=== PATIENT | male | born 1990 | race Two or more races ===

== ENCOUNTER 2024-04-11 08:59 | Inpatient (IN) | payer OTHER ==
[2024-04-11] VITALS (10 sets, daily range): BP systolic 105–137; BP diastolic 52–92; PULSE 75–100; RESP 13–20; TEMP 98–99.1; O2SAT 93–98
[~2024-04-11] VITALS: Ht 170.2 cm; Wt 82.0 kg
[2024-04-11 09:44] LABS: Urine Bacteria None Seen /hpf (None Seen)
[2024-04-11] MEDS: PANTOPRAZOLE 40 MG/10 ML VIAL INJ IV ONE (09:44)
[2024-04-11] MEDS: SODIUM CHLORIDE 0.9% 1,000 ML IV ONE (09:44)
[2024-04-11] MEDS: PROCHLORPERAZINE EDISYLATE 5 MG/ML 2ML VIAL IV ONE (09:44)
[2024-04-11] MEDS: MORPHINE SULFATE 4 MG/ML SYR/VIAL IV ONE (09:45)
[2024-04-11 09:53] LABS: Urine Blood TRACE /uL (Negative); Urine Clarity Clear (Clear); Urine Color Light-Yellow (Yellow); Urine Hyaline Cast MOD /lpf (0 - 2); Urine Protein, UAD 2+ (Negative); Urine Specific Gravity 1.021 (1.001-1.035); Urine Urobilinogen 2 mg/dL (Negative); Urine WBC 4 /hpf (0 - 3); Urine pH 5.5 (5.0-9.0)
[2024-04-11 10:00] LABS: Basophils # (auto) 0 10 ^3/uL (0-0.2); Basophils % (auto) 0.3 % (0.0-2.0); Eosinophils # (auto) 0 10 ^3/uL (0-0.8); Hemoglobin 15.2 g/dL (13.5-17.5); Lymphocytes # (auto) 0.9 10 ^3/uL (0.4-5.4); Mean Corpuscular Hgb Conc. 35.4 g/dL (32.0-36.0); Mean Corpuscular Volume 93.2 fL (80.0-100.0); Monocytes # (auto) 0.8 10 ^3/uL (0-1.3); Monocytes % (auto) 6.2 % (0.0-12.0); Neutrophils # (auto) 10.9 10 ^3/uL (1.6-8.6); Neutrophils % (auto) 86.5 % (37.0-80.0); Red Blood Cells 4.61 10^6/uL (4.5-5.90); Red Cell Distribution Width 13.4 % (11.8-14.3); White Blood Cell 12.5 10^3/uL (4.4-10.8)
[2024-04-11 10:02] LABS: Amphetamine Screen, Urine Neg (NEGATIVE); Barbiturate Scree,Urine Neg (NEGATIVE); Benzodiazephine Screen, Urine Neg (NEGATIVE); Cannabinoid Screen, Urine Neg (NEGATIVE); Cocaine Screen, Urine Neg (NEGATIVE); Opiate Scree,Urine Neg (NEGATIVE); Phencyclidine Screen, Urine Neg (NEGATIVE)
[2024-04-11 10:03] LABS: Chloride 83 mmol/L (98-107); Potassium 2.9 mmol/L (3.5-5.1); Sodium 130 mmol/L (136-145)
[2024-04-11 10:04] LABS: Anion Gap 29 (5-15); Calcium 10.9 mg/dL (8.5-10.1); Carbon Dioxide 18 mmol/L (20-30)
[2024-04-11 10:09] LABS: Blood Urea Nitrogen 14 mg/dL (9-23); Glucose 112 mg/dL (74-106)
[2024-04-11 10:10] LABS: Blood Alcohol < 3.0 mg/dL (<10)
[2024-04-11] MEDS ORDERED: DEXTROSE (50%) 50ML SYRG IV PRN ×2 (10:30→10:45)
[2024-04-11] MEDS ORDERED: ACETAMINOPHEN 325 MG TAB PO PRN (10:45)
[2024-04-11] MEDS ORDERED: DOCUSATE SOD 100 MG CAP PO PRN (10:45)
[2024-04-11] MEDS ORDERED: MORPHINE SULFATE INJ 2 MG/ml SYRG IV PRN ×2 (10:45)
[2024-04-11] MEDS ORDERED: HYDROcodone-ACET 5/325MG TAB PO PRN (10:45)
[2024-04-11] MEDS ORDERED: TEMAZEPAM 15 MG CAP PO PRN (10:45)
[2024-04-11] MEDS ORDERED: NITROGLYCERIN 0.4 MG SL TAB SL PRN (10:45)
[2024-04-11] MEDS: INSULIN LANTUS (GLARGINE) 1 /0.01ml (100units/ml) SC ONE (11:00)
[2024-04-11 11:29] LABS: Magnesium 1.7 mg/dL (1.6-2.6)
[2024-04-11] MEDS: ENOXAPARIN SOD 40 MG/0.4 ML SYRINGE SC SCH (11:30)
[2024-04-11 11:31] LABS: Phosphorus 1.9 mg/dL (2.4-5.1)
[2024-04-11] MEDS: D5W/SOD CHLO 0.9% 1,000 ML IV SCH (11:31)
[2024-04-11] MEDS: POTASSIUM CHL 20MEQ/100ML 100 ML IV ONE (11:31)
[2024-04-11 11:55] LABS: Base Excess -3.6 mmol/L (-2.0-2.0)
[2024-04-11] MEDS ORDERED: ACCU-CHEK COMFORT CURVE STRIP VI SCH (12:00)
[2024-04-11 14:36] LABS: Chloride 91 mmol/L (98-107); Potassium 3.1 mmol/L (3.5-5.1); Sodium 132 mmol/L (136-145)
[2024-04-11 14:37] LABS: Anion Gap 18 (5-15); Carbon Dioxide 23 mmol/L (20-30)
[2024-04-11 14:38] LABS: Calcium 9.2 mg/dL (8.7-10.4)
[2024-04-11 14:42] LABS: BUN/Creatinine Ratio 12.2 (10.0-20.0); Blood Urea Nitrogen 11 mg/dL (9-23); Glucose 139 mg/dL (74-106)
[2024-04-11] MEDS: POTASSIUM CHL 20MEQ/100ML 100 ML IV SCH (15:17)
[2024-04-11] MEDS: ONDANSETRON HCL 4 MG/2 ML VIAL IV PRN (15:17)
[2024-04-11] MEDS: ACCU-CHEK COMFORT CURVE STRIP VI SCH (15:23)
[2024-04-11] MEDS ORDERED: POTASSIUM PHOSPHATE 26.4 MEQ in SODIUM CHL 0.9% 100 ML IV ONE (15:30)
[2024-04-11] MEDS: INSULIN DRIP 100 UNIT/100ML 100 ML IV SCH (15:52)
[2024-04-11] MEDS ORDERED: CITA-77 PO (16:03)
[2024-04-11] MEDS ORDERED: LAMO200T34 PO (16:03)
[2024-04-11] MEDS ORDERED: HYDR-3682 PO (16:03)
[2024-04-11 20:08] LABS: Chloride 97 mmol/L (98-107); Potassium 3.2 mmol/L (3.5-5.1); Sodium 133 mmol/L (136-145)
[2024-04-11 20:09] LABS: Anion Gap 12 (5-15); Carbon Dioxide 24 mmol/L (20-30)
[2024-04-11 20:10] LABS: Calcium 9.1 mg/dL (8.5-10.1)
[2024-04-11 20:14] LABS: BUN/Creatinine Ratio 12.5 (10.0-20.0); Blood Urea Nitrogen 10 mg/dL (9-23); Glucose 101 mg/dL (74-106)
[2024-04-11] MEDS: POTASSIUM PHOSPHATE 26.4 MEQ in SODIUM CHL 0.9% 100 ML IV ONE (20:29)
[2024-04-11] MEDS: hydrOXYzine 25 MG TAB or CAP PO SCH (21:49)
[2024-04-12] VITALS (42 sets, daily range): BP systolic 107–137; BP diastolic 73–96; PULSE 62–110; RESP 9–22; TEMP 98.2–99.3; O2SAT 92–99
[2024-04-12 02:01] LABS: Chloride 101 mmol/L (98-107); Potassium 2.9 mmol/L (3.5-5.1); Sodium 137 mmol/L (136-145)
[2024-04-12 02:02] LABS: Anion Gap 9 (5-15); Calcium 9.2 mg/dL (8.7-10.4); Carbon Dioxide 27 mmol/L (20-30)
[2024-04-12 02:07] LABS: BUN/Creatinine Ratio 9.6 (10.0-20.0); Blood Urea Nitrogen 7 mg/dL (9-23); Glucose 110 mg/dL (74-106)
[2024-04-12 05:14] LABS: Basophils # (auto) 0 10 ^3/uL (0-0.2); Basophils % (auto) 0.2 % (0.0-2.0); Eosinophils # (auto) 0.1 10 ^3/uL (0-0.8); Eosinophils % (auto) 1.4 % (0.0-7.0); Hematocrit 37.3 % (41.0-53.0); Hemoglobin 12.8 g/dL (13.5-17.5); Lymphocytes # (auto) 1.4 10 ^3/uL (0.4-5.4); Lymphocytes % (auto) 26.6 % (10.0-50.0); Mean Corpuscular Hemoglobin 32.6 pg (28.0-32.0); Mean Corpuscular Hgb Conc. 34.2 g/dL (32.0-36.0); Mean Corpuscular Volume 95.2 fL (80.0-100.0); Monocytes # (auto) 0.5 10 ^3/uL (0-1.3); Monocytes % (auto) 9.6 % (0.0-12.0); Neutrophils # (auto) 3.4 10 ^3/uL (1.6-8.6); Neutrophils % (auto) 62.2 % (37.0-80.0); Red Blood Cells 3.91 10^6/uL (4.5-5.90); Red Cell Distribution Width 13.6 % (11.8-14.3); White Blood Cell 5.4 10^3/uL (4.4-10.8)
[2024-04-12 05:29] LABS: Alanine Aminotransferase 64 U/L (7-40); Albumin 3.7 g/dL (3.2-4.8); Alkaline Phosphatase 50 U/L (46-116); Anion Gap 9 (5-15); Aspartate Aminotransferase 73 U/L (13-40); BUN/Creatinine Ratio 10.6 (10.0-20.0); Blood Urea Nitrogen 7 mg/dL (9-23); Calcium 9.1 mg/dL (8.7-10.4); Carbon Dioxide 29 mmol/L (20-30); Chloride 101 mmol/L (98-107); Glucose 108 mg/dL (74-106); Potassium 2.8 mmol/L (3.5-5.1); Sodium 139 mmol/L (136-145)
[2024-04-12 05:30] LABS: Bilirubin, Total 0.6 mg/dL (0.2-1.0); Total Protein 6.2 g/dL (5.7-8.2)
[2024-04-12] MEDS: SODIUM CHLORIDE 0.9% 1,000 ML IV SCH (08:17)
[2024-04-12] MEDS: POTASSIUM CHL 20MEQ/100ML 100 ML IV SCH (08:17)
[2024-04-12] MEDS: POTASSIUM CHL 20 Meq TABLET PO ONE (08:17)
[2024-04-12] MEDS: CITALOPRAM HYDROBR 20 MG TAB PO SCH (09:39)
[2024-04-12] MEDS: lamoTRIgine 100 MG TAB PO SCH (09:39)
[2024-04-12] MEDS: PANTOPRAZOLE 40 MG/10 ML VIAL INJ IV SCH (09:40)
[2024-04-12] MEDS ORDERED: INSULIN LANTUS (GLARGINE) 1 /0.01ml (100units/ml) SC SCH (10:00)
[2024-04-13] VITALS (13 sets, daily range): BP systolic 129–153; BP diastolic 87–114; PULSE 64–83; RESP 14–19; TEMP 97.6–98.6; O2SAT 95–100
[2024-04-13 04:41] LABS: Basophils # (auto) 0 10 ^3/uL (0-0.2); Basophils % (auto) 0.8 % (0.0-2.0); Eosinophils # (auto) 0.1 10 ^3/uL (0-0.8); Eosinophils % (auto) 1.6 % (0.0-7.0); Hematocrit 37.4 % (41.0-53.0); Hemoglobin 12.8 g/dL (13.5-17.5); Lymphocytes % (auto) 36.2 % (10.0-50.0); Mean Corpuscular Hemoglobin 32.4 pg (28.0-32.0); Mean Corpuscular Hgb Conc. 34.1 g/dL (32.0-36.0); Mean Corpuscular Volume 95.1 fL (80.0-100.0); Monocytes # (auto) 0.4 10 ^3/uL (0-1.3); Monocytes % (auto) 7.5 % (0.0-12.0); Neutrophils % (auto) 53.9 % (37.0-80.0); Nucleated Red Blood Cells % 0.1 %; Red Blood Cells 3.94 10^6/uL (4.5-5.90); Red Cell Distribution Width 13.5 % (11.8-14.3); White Blood Cell 5.5 10^3/uL (4.4-10.8)
[2024-04-13 04:57] LABS: Alanine Aminotransferase 64 U/L (7-40); Albumin 3.7 g/dL (3.2-4.8); Alkaline Phosphatase 47 U/L (46-116); Anion Gap 6 (5-15); Aspartate Aminotransferase 63 U/L (13-40); BUN/Creatinine Ratio 8.8 (10.0-20.0); Bilirubin, Total 0.7 mg/dL (0.2-1.0); Blood Urea Nitrogen 5 mg/dL (9-23); Calcium 9.5 mg/dL (8.7-10.4); Carbon Dioxide 28 mmol/L (20-30); Chloride 105 mmol/L (98-107); Glucose 94 mg/dL (74-106); Potassium 3.4 mmol/L (3.5-5.1); Sodium 139 mmol/L (136-145); Total Protein 6.2 g/dL (5.7-8.2)
[2024-04-13 05:13] LABS: Urine Bacteria None Seen /hpf (None Seen)
[2024-04-13 05:35] LABS: Urine Blood Negative /uL (Negative); Urine Clarity Clear (Clear); Urine Color Colorless (Yellow); Urine Protein, UAD Negative (Negative); Urine Specific Gravity 1.008 (1.001-1.035); Urine Urobilinogen Normal (Negative); Urine WBC 1 /hpf (0 - 3)
[2024-04-13] MEDS ORDERED: POTASSIUM CHL 20 Meq TABLET PO ONE (14:45)
== END 2024-04-13 15:00 | disposition home or self-care (01) | DRG 420 ==
LOC: ER 08:59 → EDBD 08:59 → TELE 10:42 → ICU CENTRL 15:22 → DOU IN ICU 16:00 → CENTRAL 04-13 06:15
PROVIDERS: ADMIT Nurse Practitioner; ATTEND Nurse Practitioner
DX: E11.10 Type 2 diabetes mellitus with ketoacidosis without coma (principal); E87.1 Hypo-osmolality and hyponatremia; E87.6 Hypokalemia; K59.00 Constipation, unspecified; F17.210 Nicotine dependence, cigarettes, uncomplicated; F31.9 Bipolar disorder, unspecified; Z79.4 Long term (current) use of insulin; Z79.899 Other long term (current) drug therapy
CPT/HCPCS: 36415; 36600; 71045; 74021; 80048; 80053; 80307; 80320; 81001; 82010; 82805; 82962; 83036; 83690; 83735; 83930; 84100; 84132; 85025; 87081; 96365; 96375; C9113; G0378; J2405; J3480; J7042